=== PATIENT | male | born 1975 | race African-American/Black ===

== ENCOUNTER 2022-07-20 20:42 | Emergency (ER) | payer OTHER ==
[2022-07-20] MEDS ORDERED: Orphenadrine Citrate 60 MG/2 ML VIAL ONE (21:42)
[2022-07-20] MEDS ORDERED: Ibuprofen 800 MG TAB ONE (21:42)
== END 2022-07-20 23:01 | disposition home or self-care (01) ==
LOC: ERS 20:42
DX: M54.50 Low back pain, unspecified (principal); F17.210 Nicotine dependence, cigarettes, uncomplicated
CPT/HCPCS: 96372; 99283; J2360

== ENCOUNTER 2022-09-16 09:41 | Emergency (ER) | payer SELFPAY ==
[2022-09-16] MEDS ORDERED: Lidocaine 1% w/Epinephrine 1:100K 20 ML VIAL ONE (12:32)
[2022-09-16] MEDS ORDERED: Acetaminophen 500 MG TAB ONE (12:32)
== END 2022-09-16 13:20 | disposition home or self-care (01) ==
LOC: ERS 09:41
DX: L02.215 Cutaneous abscess of perineum (principal); F17.210 Nicotine dependence, cigarettes, uncomplicated
CPT/HCPCS: 46050

== ENCOUNTER 2022-09-25 23:14 | Emergency (ER) | payer SELFPAY ==
[2022-09-26] MEDS ORDERED: Fleet Enema 133 ML BOT FS SCH (00:45)
[2022-09-26] MEDS ORDERED: Senokot 8.6 MG TAB PO SCH (01:30)
[2022-09-26] MEDS ORDERED: Polyethylene Glycol 3350 17 GM Packet PO SCH (01:30)
[2022-09-26] MEDS ORDERED: Acetaminophen 500 MG TAB ONE (01:53)
== END 2022-09-26 01:55 | disposition home or self-care (01) ==
LOC: ERS 23:14
DX: K59.00 Constipation, unspecified (principal); K64.4 Residual hemorrhoidal skin tags; F17.210 Nicotine dependence, cigarettes, uncomplicated
CPT/HCPCS: 99283